=== PATIENT | female | born 1995 | race Caucasian/White ===

== ENCOUNTER 2016-10-14 17:35 | Emergency (ER) | payer SELFPAY ==
[2016-10-14] MEDS ORDERED: Sodium Chloride 0.9% 1,000 ML PRIMARY IV ONE ×2 (17:47→19:31)
[2016-10-14] MEDS ORDERED: NORMAL SALINE 10 ML SYRINGE FLUSH IVP PRN (17:47)
[2016-10-14 17:54] VITALS: RESP 16; TEMP 98.3
[2016-10-14 18:07] LABS: BASOPHILS # (AUTO) 0.03 10*3/UL; BASOPHILS % (AUTO) 0.2 % (0-1); EOSINOPHILS % (AUTO) 0.6 % (0-8); HEMATOCRIT 40.9 % (37.0-47.0); IMM GRAN % (AUTO) 0.4 % (0-5); IMM GRAN# (AUTO) 0.05 10*3/UL; LYMPHOCYTES # (AUTO) 2.17 10*3/uL; LYMPHOCYTES % (AUTO) 17.1 % (10-50); MEAN CORPUSCULAR HEMOGLOBIN 30.6 PG (27-31); MEAN CORPUSCULAR HGB CONC 34.2 g/dL (33-37); MEAN PLATELET VOLUME 8.7 FL (7.4-12.2); MONOCYTES # (AUTO) 0.79 10*3/UL (0.3-0.8); MONOCYTES % (AUTO) 6.2 % (5-15); NEUTROPHILS # (AUTO) 9.55 10*3/UL; NEUTROPHILS % (AUTO) 75.5 % (50-80); RED BLOOD COUNT 4.57 10^6/uL (4.20-5.40); WHITE BLOOD COUNT 12.67 10^3/uL (4.8-10.8)
[2016-10-14 18:08] LABS: PLATELET MORPHOLOGY COMMENT NORMAL MORPHOLOGY (NORM)
[2016-10-14 18:30] LABS: ASPARTATE AMINO TRANSFERASE 18 IU/L (8-39); BILIRUBIN,TOTAL 0.7 mg/dL (0.3-1.2); BLOOD UREA NITROGEN 10 mg/dL (7-22); BUN/CREATININE RATIO 14.28 (6-20); CALCIUM 9.8 mg/dL (8.7-10.7); CHLORIDE 99 meq/L (98-112); CREATININE 0.7 mg/dL (0.50-1.20); EST GLOMERULAR FILTRATION > 60 (>60 ml/min/1.73m(2)); GLUCOSE 89 mg/dL (78-110); POTASSIUM 3.7 meq/L (3.8-5.2); SODIUM 138 meq/L (135-145); TOTAL PROTEIN 8.2 g/dL (6.1-8.0)
[2016-10-14 19:35] LABS: BILIRUBIN,URINE NEGATIVE (NEG); CLARITY,URINE CLEAR (CLEAR); GLUCOSE, URINE (UA) NEGATIVE (NEG); LEUKOCYTE ESTERASE ,URINE NEGATIVE (NEG); NITRATE,URINE NEGATIVE (NEG); OCCULT BLOOD,URINE Trace-intact (NEG); PROTEIN,URINE NEGATIVE (NEG); UROBILINOGEN,URINE 0.2 EU/dL (0.2)
[2016-10-14 19:37] LABS: URINE SAMPLE TYPE VOIDED SPECIMEN
[2016-10-14 19:38] LABS: RBC,URINE 0-2 /hpf; SQUAMOUS EPITHELIAL CELL,UR RARE
--- NOTE | 2016-10-14 20:10 | DI ---
HISTORY: Headache and dizziness. COMPARISON: None available. TECHNIQUE: Multiple helically acquired CT images were obtained through the brain without contrast. FINDINGS: Examination demonstrates normal, symmetric ventricles and other CSF containing spaces. Th ere is no mass, hemorrhage or midline shift. The surrounding soft tissue and osseous structures are unremarkable. IMPRESSION: 1. Normal CT of the head.
--- NOTE | 2016-10-15 00:22 | PDOC ---
General Adult HPI - General Chief Complaint: Headache Stated Complaint: HEADACHE, DIZZY Date Seen by Provider: 10/14/16 Time Seen by Provider: 17:35 Source: POSITIVE: Patient, Spouse Exam Limitations: POSITIVE: No limitations Nurse's Notes Reviewed & Considered: Yes - History of Present Illness Initial Comment: The patient is a 21 year old female. She states that for the last 3-4 days she has felt "dizzy and weak"especially when standing up. She also complains of a headache to the top of her head for the past week, which sometimes is present when she wakes up. Patient states she has been diagnosed with migraine headaches but is never had any imaging studies. She has had some nasal congestion and cough. No neurologic symptoms. No fevers or chills. No GI or symptoms. Have you received a tetanus shot in the past 10 years?: Yes Body Location Affected: REPORTS: Head, Other (As above) Timing: REPORTS: Gradual Duration: <1 week Severity: Moderate Quality: REPORTS: "Pain" (Headache) Context: REPORTS: None, Coughing Modifying Factors: worse with: Nothing, Analgesics, Antacids, Breathing, Coughing, Defecating, Vomiting, Eating, Exercise, Lying down, Urinating, Palpation, Movement, Rest, Upright Position, Walking, Remaining Still, Other Similar Symptoms Previously: No Recent Care Received: REPORTS: Denies Any Prior Injuries Related to Current Complaint?: No - Patient Home Medications Home Medications: Home Medications Butalb/Acetaminophen/Caffeine [Tehksn-Erchtwbz-Lnxm 50-325-40] 1 each PO QID PRN 10/14/16 Pseudoephedrine HCl [Sudogest] 60 mg PO Q6H PRN PRN 10/14/16 - Patient Allergies Allergies/Adverse Reactions: Allergies Allergy/AdvReac Type Severity Reaction Status Date / Time No Known Allergies Allergy Unverified 10/14/16 17:41 Past Medical History - heen HEENT History: Denies History Cardiovascular History: Denies History Respiratory History: Denies History Gastrointestinal History: Denies History Genitourinary History: Denies History Endocrine History: Denies History Musculoskeletal History: Denies History Neurological History: Other (please comment) Additional Neurological History: TENSION HEADACHES Blood Disorders: Denies History Psychiatric History: Denies History History of Sexually Transmitted Diseases: No Female Reproductive History: Denies History LMP: 10/03/16 Obstetrical History: Denies History Cancer History: Denies History In Past Year Been Physically Harmed or Verbally Threatened: No History of MDRO: No Tobacco Use: Current Every Day Smoker Alcohol Use: None Substance Use Type: None Previous Surgical History: Yes Type / Date of Surgery: FB REMOVAL RIGHT HIP Significant Family History: No pertinent family hx Past Medical History Reviewed: Reviewed - No Changes ROS - Limitations ROS Limitations: No Limitations Constitution: REPORTS: Weakness Cardiovascular: REPORTS: Denies Cardiac Symptoms Respiratory: REPORTS: Denies Resp Symptoms Neurological: REPORTS: Headache, Dizziness Gastrointestinal: REPORTS: Denies GI Symptoms Endocrine: REPORTS: Denies Symptoms Musculoskeletal: REPORTS: Denies MS Symptoms Genitourinary: REPORTS: Denies Symptoms Eyes: REPORTS: Denies Symptoms ENT: REPORTS: Congestion (Nasal congestion, moderate) Skin: REPORTS: Denies Skin Symptoms Lympathic: REPORTS: Denies Lympathic Symptoms Immunologic: POSITIVE: Denies Symptoms Psychiatric: POSITIVE: Denies Psych Symptoms General Adult Exam - General Appearance General Appearance: POSITIVE: Alert, Cooperative, No Acute Distress, No Evidence of Trauma - HEENT HEENT: POSITIVE: Head Inspection Nml, Eyes Inspection Nml, Ears Inspection Nml, Oral/Dental Inspect. Nml, Pharynx Inspect. Nml, PERRL, EOMI. NEGATIVE: Nose Inspection Nml (Mild nasal congestion) - Pupils Pupil Size: 4 mm: Bilateral (PERRLA) - Neck Neck: POSITIVE: Normal Inspection, Thyroid Normal - Respiratory Respiratory: POSITIVE: No Respiratory Distress, Breath Sounds Normal, Chest Non- Tender - Cardiovascular Cardiovascular: POSITIVE: Regular Rate & Rhythm, No Murmur, No Gallop, PMI Normal Peripheral Pulses: Radial (R): 2+, Radial (L): 2+ - Abdomen Abdomen: Soft: (All Quadrants), Normal Bowel Sounds: (All Quadrants), Denies Tenderness: (All Quadrants), No Splenomegaly: (All Quadrants), No Hepatomegaly: (All Quadrants), No Guarding: (All Quadrants), No Rebound: (All Quadrants), No Palpable Pulse: (All Quadrants), No Palpabale Mass: (All Quadrants), No Distention: (All Quadrants), No Rigidity: (All Quadrants) - Back Back: POSITIVE: Normal Inspection - Skin Skin: POSITIVE: Normal Color, Warm, Dry, No Rash - Extremities Extremity: Non-Tender: (All Extremities), Normal ROM: (All Extremities), Normal Inspection: (All Extremities) - Neurological / Psychological Neurological: 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: 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, 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, 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 As Tested, Motor Normal, Sensation Normal Images - Head Head: 1 - Area of reported headache; scalp tender on compression firm palpation General Adult Progress - Results Reviewed by me Xrays/CTs/US Reviewed by me: Yes Discussed with Radiologist: Yes Radiology Findings: CT scan head without contrast normal Lab Results Reviewed: Yes Lab Results:: Laboratory Results 10/14/16 10/14/16 Range/Units 17:50 18:01 WBC 12.67 H (4.8-10.8) 10^3/uL RBC 4.57 (4.20-5.40) 10^6/uL Hgb 14.0 (12.0-16.0) g/dL Hct 40.9 (37.0-47.0) % MCV 89.5 (81-99) FL MCH 30.6 (27-31) PG MCHC 34.2 (33-37) g/dL RDW Std Deviation 38.5 L (39-50) fL RDW Coeff of Mame 12.0 (11.5-14.5) % Plt Count 408 H (140-350) 10*3/uL MPV 8.7 (7.4-12.2) FL Immature Gran % (Auto) 0.4 (0-5) % Neut % (Auto) 75.5 (50-80) % Lymph % (Auto) 17.1 (10-50) % [place] % (Auto) 6.2 (5-15) % Eos % (Auto) 0.6 (0-8) % Baso % (Auto) 0.2 (0-1) % Immature Gran # (Auto) 0.05 10*3/UL Neut # (Auto) 9.55 10*3/UL Lymph # (Auto) 2.17 10*3/uL [place] # (Auto) 0.79 (0.3-0.8) 10*3/UL Eos # (Auto) 0.08 10*3/UL Baso # (Auto) 0.03 10*3/UL WBC Morphology Comment Normal morphology (NORM) Plt Morphology Comment Normal morphology (NORM) RBC Morph Comment Normal morphology (NORM) Sodium 138 (135-145) meq/L Potassium 3.7 L (3.8-5.2) meq/L Chloride 99 (98-112) meq/L Carbon Dioxide 27 (23-33) meq/L Anion Gap 12 (5-20) BUN 10 (7-22) mg/dL Creatinine 0.7 (0.50-1.20) mg/dL Estimated GFR > 60 (>60 ml/min/1.73m(2)) BUN/Creatinine Ratio 14.28 (6-20) Glucose 89 (78-110) mg/dL Calculated Osmolality 283.0 (267-292) mOsm/kg Calcium 9.8 (8.7-10.7) mg/dL Total Bilirubin 0.7 (0.3-1.2) mg/dL AST 18 (8-39) IU/L ALT 31 (9-52) IU/L Alkaline Phosphatase 65 (38-126) IU/L Total Protein 8.2 H (6.1-8.0) g/dL Albumin 4.8 (3.5-4.8) g/dL Globulin 3.4 (2.50-4.10) g/dL Albumin/Globulin Ratio 1.40 (1.3-2.0) mg/g Serum HCG, Qual Negative Ur Collection Type Voided specimen Urine Color Yellow Urine Clarity Clear (CLEAR) Urine pH 7.0 (5.0-8.5) Ur Specific [place] 1.010 (1.005-1.030) Urine Protein Negative (NEG) mg/dl Urine Glucose (UA) Negative (NEG) mg/dL Urine Ketones Negative (NEG) Urine Occult Blood Trace-intact H (NEG) Urine Nitrate Negative (NEG) Urine Bilirubin Negative (NEG) Urine Urobilinogen 0.2 (0.2) EU/dL Ur Leukocyte Esterase Negative (NEG) Urine RBC 0-2 (NONE) /hpf Urine WBC None (NONE) Ur Squamous Epith Cells Rare (NONE) Ur Renal Epithelial Cell None (NONE) Urine Crystals None Urine Bacteria None (NONE) Urine Casts None (NONE) Urine Mucus None (NONE) Urine Trichomonas None (NONE) Urine Yeast None (NONE) Ur Culture Indicated? Culture not set - Patient's Progress Pain Medication Addressed: POSITIVE: Patient Refused School/Work Release Addressed: POSITIVE: Not Applicable Re-Examine Time: 20:10 Re-Examine Comment: Orthostatic blood pressures on arrival showed a blood pressure 101/75 with a pulse of 103 upright and blood pressure 117/64 with a pulse of 76 supine. Patient given 2 L of normal saline IV in the ER Status: POSITIVE: Improved, Re-Examined (Headache resolved on discharge. Patient feeling better) Antibiotics Given: No - Consult Counseled: POSITIVE: Patient, RE: Lab Results, RE: Radiology Results, RE: DX, RE : Need for F/U Patient Care Time - Estimated PCT Patient Care Time (In Minutes): 33 Vital Signs - Recent Vital Signs Vital Signs: Vital Signs (Last 8 hours) Temp Pulse Pulse Pulse Pulse Resp BP 10/14/16 17:46 98.3 F 93 16 127/70 10/14/16 17:40 76 81 103 H BP BP BP Pulse Ox 10/14/16 17:46 98 10/14/16 17:40 117/64 121/76 110/75 - VS Reviewed Vital Signs Reviewed: Yes Discharge Clinical Impression: Tension-type headache, Viral syndrome Discharge Disposition: Discharged to Home Condition: Stable Patient Instructions Given at Discharge: Tension Headache (ED), Dizziness (ED) Additional Instructions: Her symptoms are most likely due to a viral infection. CT scan of your head is normal and your blood and urine tests are all okay except for a mildly elevated white blood cell count in your blood. Rest. Increase fluids. Return anytime if condition worsens. Follow-up with your primary care provider. Follow Up With: NONE,NONE [Primary Care Provider] - (Instructions as above. Follow-up with your primary care provider. Return here as necessary.)
== END 2016-10-14 20:25 | disposition home or self-care (01) ==
LOC: ER 17:35
DX: G44.219 Episodic tension-type headache, not intractable (principal); B34.9 Viral infection, unspecified; R42 Dizziness and giddiness; R05 Cough; F17.210 Nicotine dependence, cigarettes, uncomplicated
CPT/HCPCS: 70450; 80053; 81001; 81003; 84703; 85025; 96360; 96361; 99283; J7030

== ENCOUNTER → 2016-10-31 | Outpatient (CLI) | payer SELFPAY ==
[2016-10-31 14:00] LABS: BASOPHILS # (AUTO) 0.04 10*3/UL; BASOPHILS % (AUTO) 0.4 % (0-1); EOSINOPHILS % (AUTO) 1.1 % (0-8); IMM GRAN % (AUTO) 0.4 % (0-5); IMM GRAN# (AUTO) 0.04 10*3/UL; LYMPHOCYTES # (AUTO) 2.23 10*3/uL; MEAN CORPUSCULAR HEMOGLOBIN 30.7 PG (27-31); MEAN CORPUSCULAR HGB CONC 34.1 g/dL (33-37); MEAN PLATELET VOLUME 8.9 FL (7.4-12.2); MONOCYTES # (AUTO) 0.66 10*3/UL (0.3-0.8); MONOCYTES % (AUTO) 6.2 % (5-15); NEUTROPHILS # (AUTO) 7.51 10*3/UL; NEUTROPHILS % (AUTO) 70.9 % (50-80); RDW COEFFICIENT OF VARIATION 12.1 % (11.5-14.5); RED BLOOD COUNT 4.56 10^6/uL (4.20-5.40)
[2016-10-31 14:02] LABS: PLATELET MORPHOLOGY COMMENT NORMAL MORPHOLOGY (NORM)
[2016-10-31 14:09] LABS: ASPARTATE AMINO TRANSFERASE 21 IU/L (8-39); BILIRUBIN,TOTAL 0.4 mg/dL (0.3-1.2); BLOOD UREA NITROGEN 7 mg/dL (7-22); CALCIUM 9.6 mg/dL (8.7-10.7); CHLORIDE 104 meq/L (98-112); CREATININE 0.7 mg/dL (0.50-1.20); EST GLOMERULAR FILTRATION > 60 (>60 ml/min/1.73m(2)); GLUCOSE 90 mg/dL (78-110); POTASSIUM 3.9 meq/L (3.8-5.2); SODIUM 142 meq/L (135-145); TOTAL PROTEIN 8.1 g/dL (6.1-8.0)
--- NOTE | 2016-10-31 15:07 | DI ---
CT ABDOMEN SCAN WITH IV CONTRAST, 10/31/2016 2:07 PM : Clinical History: Abdominal pain. Previous Exam: None at this facility. Scans are performed from the lower lung bases through the liver and kidneys with IV contrast. No oral or rectal contrast was ordered. The lung bases are clear. The liver is normal. The gallbladder is grossly normal. There is no abnorma lity of the spleen, pancreas, and adrenal glands. Both kidneys are normal in size, shape, position an d contour. There is no hydronephrosis or hydroureter. No renal or ureteral calculi are present. There are no abnormal retrocrural or periaortic nodes. No ascites is present. READING: Normal CT abdomen scan. CT PELVIS SCAN WITH IV CONTRAST, 10/31/2016 2:07 PM: Clinical History: See above. Previous Exam: None at this facility. Scans are performed from just superior to the umbilicus to the symphysis pubis with IV contrast. This is the same bolus of contrast used for the CT scans of the abdomen. Scans through the lower abdomen and pelvis show no masses or abnormal fluid collections. There is no adenopathy. The appendix is normal and lies in a retrocecal position. The small bowel, terminal ileum , and ileocecal valve are normal. The colon is also normal. There are no hernias. The uterus and left ovary are normal. There is a large 4 x 4 by 5 cm cyst of the right ovary. READIN x 4 by 5 cm cyst of the right ovary. The exam is otherwise normal.
== END ==
LOC: MOB LAB 13:17
PROVIDERS: ATTEND Physician Assistant Medical
DX: R10.84 Generalized abdominal pain (principal); N83.201 Unspecified ovarian cyst, right side; F17.210 Nicotine dependence, cigarettes, uncomplicated
CPT/HCPCS: 36415; 74177; 80053; 85025; 87088

== ENCOUNTER → 2016-11-07 | Outpatient (CLI) | payer SELFPAY ==
--- NOTE | 2016-11-07 16:44 | DI ---
PELVIC ULTRASOUND, 11/07/2016 10:15 AM Clinical History: Right ovarian cyst. Previous Exam: None at this facility. Comparison is made with the recent CT scan of the abdomen and p evan from 10/31/2016. Technique: Transvaginal scans are performed. The uterus is normal in appearance and measures 35 x 40 x 75 mm. The central uterine stripe measures 9 mm. Both ovaries are well visualized and no cyst of either the right or left ovary is identified. T here is a small amount of fluid in the cul-de-sac and this is probably still secondary to a physiolog ic fluid. Review of the CT scan shows that there was a 4 x 4 by 5 cm well-circumscribed low-density l esion associated with the right ovary. This structure is no longer visible and presumably represents a right ovarian cyst that has undergone spontaneous rupture. Readin. Both ovaries are normal. The cystic lesion seen on the CT scan from 10/31/2016, is no longer visib le. 2. The uterus is normal. There is a physiologic amount of fluid in the cul-de-sac.
== END ==
LOC: US 10:11
PROVIDERS: ATTEND Student in an Organized Health Care Education/Training Program
DX: N83.201 Unspecified ovarian cyst, right side (principal)
CPT/HCPCS: 76830

== ENCOUNTER → 2016-11-29 | Outpatient (CLI) | payer SELFPAY | LOC: LAB 12:25 | DX: N92.6 Irregular menstruation, unspecified (principal); Z32.02 Encounter for pregnancy test, result negative | CPT/HCPCS: 36415; 84703 ==

== ENCOUNTER 2016-12-06 08:00 | Emergency (ER) | payer SELFPAY ==
[2016-12-06 08:13] VITALS: RESP 16; TEMP 97
[2016-12-06] MEDS ORDERED: BACITRACIN 0.9 GM PACKET OINT TOPICAL ONE ×2 (08:31→08:36)
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
== END 2016-12-06 08:40 | disposition home or self-care (01) ==
LOC: ER 08:00
DX: S62.396A Other fracture of fifth metacarpal bone, right hand, initial encounter for closed fracture (principal); W22.8XXA Striking against or struck by other objects, initial encounter
CPT/HCPCS: 29125; 73130; 99282

== ENCOUNTER 2016-12-24 19:14 | Emergency (ER) | payer SELFPAY ==
[2016-12-24] MEDS ORDERED: GUAIFENESIN/CODEINE SYRUP 100 MG/ 10 MG/ 5 ML UD CUP PO ONE (19:53)
[2016-12-24] MEDS ORDERED: AZITHROMYCIN 250 MG TABLET PO ONE (19:54)
[2016-12-24] MEDS ORDERED: AZITHROMYCIN 250 MG TABLET PO SCH (20:15)
[2016-12-24] MEDS ORDERED: GUAIFENESIN/CODEINE SYRUP 100 MG/ 10 MG/ 5 ML UD CUP PO SCH (20:15)
--- NOTE | 2016-12-24 23:31 | PDOC ---
Upper Respiratory HPI - General Chief Complaint: Cough / URI Stated Complaint: COUGH WITH FEVER WEEK AGO Date Seen by Provider: 12/24/16 Time Seen by Provider: 19:45 Source: POSITIVE: Patient Exam Limitations: POSITIVE: No limitations Nurse's Notes Reviewed & Considered: Yes - History of Present Illness Initial Comments: The patient is a 21-year-old female who presents to the emergency department with worsening cough and shortness of breath. She states that approximately for 5 days ago she had onset of fever and chills as well as congestion and cough. The fever seems to have resolved however her cough has worsened over the past 24 hours. Her cough is occasionally productive. She does have a history of smoking however denies other history of asthma or lung disease. She has not had any nausea or vomiting or any other associated complaints currently. - Patient Home Medications Home Medications: Home Medications HYDROcodone/APAP 10/325 Tab [[place] 10/325 Tab] 1 tab PO Q6H PRN #20 tab Ibuprofen 800 mg PO TID PRN 12/06/16 Azithromycin [Zithromax] 250 mg PO DAILY #6 tab 12/24/16 guaiFENesin/Codeine Liquid [Robitussin AC Liquid] 5 - 10 ml PO Q6H #60 ml - Patient Allergies Allergies/Adverse Reactions: Allergies Allergy/AdvReac Type Severity Reaction Status Date / Time No Known Allergies Allergy Unverified 12/19/16 08:57 Past Medical History - heen HEENT History: Denies History Cardiovascular History: Denies History Respiratory History: Denies History Gastrointestinal History: Denies History Genitourinary History: Denies History Endocrine History: Denies History Musculoskeletal History: Denies History Prosthesis or Implant: No Neurological History: Other (please comment) Additional Neurological History: TENSION HEADACHES Blood Disorders: Denies History Psychiatric History: Denies History History of Sexually Transmitted Diseases: No Cancer History: Denies History History of MDRO: No History of Other Communicable Diseases: No Alcohol Use: None Substance Use Type: None Previous Surgical History: Yes Type / Date of Surgery: FB REMOVAL RIGHT HIP Significant Family History: No pertinent family hx Past Medical History Reviewed: Reviewed - No Changes ROS - Limitations ROS Limitations: No Limitations Constitution: REPORTS: Fever (At onset of illness she did have fever however this has resolved) Cardiovascular: REPORTS: Denies Cardiac Symptoms Respiratory: REPORTS: Cough Non Productive, Cough Productive, Shortness Of Breath. DENIES: Wheezing Neurological: REPORTS: Denies Neuro Symptoms Gastrointestinal: REPORTS: Denies GI Symptoms Musculoskeletal: REPORTS: Muscle Aches Skin: DENIES: Rash Upper Respiratory/Fever Exam - General Appearance General Appearance: REPORTS: Alert, Cooperative, No Acute Distress - HEENT HEENT: POSITIVE: Head Inspection Nml, Eyes Inspection Nml, Ears Inspection Nml, Nose Inspection Nml, Pharynx Inspect. Nml - Neck Neck: REPORTS: Normal Inspection. DENIES: Lymphadenopathy - Respiratory Respiratory: REPORTS: No Respiratory Distress, Breath Sounds Normal - Cardiovascular Cardiovascular: REPORTS: Regular Rate and Rhythm, Heart Sounds Normal Peripheral Pulses: Dorsalis-pedis (R): 2+, Dorsalis-pedis (L): 2+ - Extremities Extremity: Normal ROM: (All Extremities), Normal Inspection: (All Extremities) - Neurological / Psychological Neurological: POSITIVE: Other (No focal neurologic deficits) Upper Resp/Fever Progress - Patient's Progress MDM / ED Course: The patient was started on Zithromax for treatment of bronchitis. She was also given Robitussin with codeine as needed for cough. She is advised return to the emergency room she develops increased shortness of breath, dehydration, any worsening or change in symptoms. She is advised follow-up with primary care if no improvement in 3-5 days. - Consult Counseled: POSITIVE: Patient, RE: DX, RE: Need for F/U Patient Care Time - Estimated PCT Patient Care Time (In Minutes): 10 Vital Signs - VS Reviewed Vital Signs Reviewed: Yes Discharge Clinical Impression: Bronchitis Discharge Disposition: Discharged to Home Condition: Stable Prescriptions / Orders: guaiFENesin/Codeine Liquid [Robitussin AC Liquid] 5 - 10 ml PO Q6H #60 ml Azithromycin [Zithromax] 250 mg PO DAILY #6 tab Patient Instructions Given at Discharge: Acute Bronchitis (ED) Additional Instructions: You have been prescribed Zithromax 500 mg today followed by 250 mg daily for 4 days for treatment of bronchitis. In addition you been given a prescription for Robitussin with codeine which she can take one or 2 teaspoons every 6 hours as needed for cough. Push fluids. Return to the emergency room if increased shortness of breath, dehydration, any worsening or change in symptoms. Follow- up with primary care if no improvement in 3-5 days. Follow Up With: CONRAD PAULINO [Primary Care Provider] -
[2016-12-24 23:40] VITALS: RESP 16; TEMP 98
== END 2016-12-24 19:59 | disposition home or self-care (01) ==
LOC: ER 19:14
DX: J20.9 Acute bronchitis, unspecified (principal); R06.02 Shortness of breath
CPT/HCPCS: 99282